=== PATIENT | female | born 2000 | race Caucasian/White ===

== ENCOUNTER 2018-01-17 12:02 | Emergency (ER) | END 2018-01-17 13:25 | disposition home or self-care (01) ==

== ENCOUNTER 2018-03-25 20:08 | Emergency (ER) | END 2018-03-25 23:39 | disposition home or self-care (01) ==

== ENCOUNTER 2018-10-08 22:06 | Inpatient (IN) | payer OTHER ==
[~2018-10-08] VITALS: Ht 149.9 cm; Wt 76.6 kg
[~2018-10-08 22:06] MED LIST: ACET500C5 PO; HYDR-4011 PO; NO MEDS; ONDA4TAB14 PO
[2018-10-08] MEDS ORDERED: PNV11TAB PO (23:13)
[2018-10-08 23:14] VITALS: BP 122/82; PULSE 68; RESP 18; Ht 149.9 cm; Wt 76.6 kg
[2018-10-08] MEDS ORDERED: LACTATED RINGER'S 1,000 ML IV PRN (23:45)
[2018-10-09] MEDS ORDERED: AMPICILLIN 2 GM/NS (PMX) 100 ML IV PRN
[2018-10-09] MEDS ORDERED: BUTORPHANOL 2 MG INJ IV PRN
[2018-10-09] MEDS ORDERED: OXYTOCIN 30 UNITS/LR 500 ML IV SCH ×2
[2018-10-09] MEDS ORDERED: OXYTOCIN 30 UNITS/LR 500 ML IV PRN
[2018-10-09] MEDS ORDERED: LIDOCAINE 1% (MPF) 30 ML INJ INJ PRN
[2018-10-09] MEDS ORDERED: CARBOPROST 250 MCG INJ IM PRN
[2018-10-09] MEDS ORDERED: MISOPROSTOL 200 MCG TAB PR PRN
[2018-10-09] MEDS ORDERED: METHYLERGONOVINE 0.2 MG INJ IM PRN
[2018-10-09] MEDS: LACTATED RINGER'S 1,000 ML IV SCH ×3 (01:06→16:54)
[2018-10-09] MEDS: MISOPROSTOL 50 MCG CAPSULE PO PRN ×5 (02:56→22:19)
--- NOTE | 2018-10-09 03:21 | TRIAGE ---
OB Triage Datetime Report Generated by CPN: 10/09/2018 03:21 Datetime: 10/09/2018 03:02 Temperature Route: Oral Monitor Mode: External Monitor Mode: External US Datetime: 10/09/2018 03:00 Stage of : Labor Labor Evaluation Frequency: irregular Monitor Mode: External Pattern: Normal: <= 5 Contractions in 10 Minutes Resting Tone Ute: Relaxed Heart Rate FHR Baseline Rate: 140 Monitor Mode: External US Variability: Moderate 6-25 bpm Accelerations: 15X15 Decelerations: None Category: Category I Datetime: 10/09/2018 02:00 Stage of : Labor Labor Evaluation Frequency: irregular Monitor Mode: External Pattern: Normal: <= 5 Contractions in 10 Minutes Resting Tone Ute: Relaxed Heart Rate FHR Baseline Rate: 145 Monitor Mode: External US Variability: Moderate 6-25 bpm Accelerations: 15X15 Decelerations: None Category: Category I Datetime: 10/09/2018 01:38 Monitor Mode: External Monitor Mode: External US Datetime: 10/09/2018 01:35 Comments: loss of contact/patient on sitting position. Datetime: 10/09/2018 01:14 Monitor Mode: External Monitor Mode: External US Datetime: 10/09/2018 01:00 Stage of : Labor Labor Evaluation Frequency: irritability Monitor Mode: External Pattern: Normal: <= 5 Contractions in 10 Minutes Resting Tone Ute: Relaxed Heart Rate FHR Baseline Rate: 140 Monitor Mode: External US Variability: Moderate 6-25 bpm Accelerations: 15X15 Decelerations: None Category: Category I Datetime: 10/09/2018 00:50 Assessment Type: Admission Assessment Vaginal Bleeding: None Maternal Assessment Level of Consciousness: Keenly Alert, Responsive DTR's/Clonus: DTRs 2+; No Clonus Headache: Denies Blurred Vision: No Respiratory Effort: Unlabored; Regular Rhythm; Equal Expansion Breath Sounds, Left: Clear and Equal Breath Sounds, Right: Clear and Equal Nausea/Vomiting: Denies RUQ Epigastric Pain: Denies Lower Extremities Edema: None Degree: None Upper Extremities Edema: None Degree: None Facial Edema: None Temperature Route: Oral Fall Risk Assessment History of Falling: (0) No Secondary Diagnosis: (0) No Ambulatory Aid: (0) Bedrest/Nurse Assist IV Therapy: (20) Yes Gait: (0) Normal/Bedrest/Immobile Mental Status: (0) Oriented to Own Ability Fall Score: 20 Fall Risk Score Definition: No Risk: No action required Pain Assessment Pain Scale: 0 Pain Presence: None/Denies Pain Type: N/A Datetime: 10/09/2018 00:00 Time of Arrival: 10/09/2018 00:00 EGA: 38.1 Arrived By: Ambulatory Arrived From: Triage Datetime: 10/08/2018 22:58 Vaginal Exam Dilatation (cms): 1.0 Effacement (%): 50 Station: -2 Exam By: Rose Norman RN Membrane Status: Intact Vaginal Bleeding: None Cervix, Consistency: Soft Cervix, Position: Posterior Presentation 'A': Cephalic Datetime: 10/08/2018 22:30 Time of Arrival: 10/08/2018 22:00 EGA: 38.0 Arrived By: Wheelchair Arrived From: Home Chief Complaint: Lower abdominal pressure every 10-15 minutes since 2099. Movement: Present Contractions: Irregular Time Contractions Began: 10/08/2018 21:00 Contractions: Every 10-15 minutes Rupture of Membranes: Denies Vaginal Bleeding: None Vaginal Discharge: Denies Recent Sexual Intercouse: Denies Abdominal Trauma: Not Applicable Patient Complaints: Nausea; Vomiting; Dizziness; Other Additional Patient Complaints: Dizziness and vomiting this week. Time Provider Notified: 10/08/2018 23:05 Provider Notified: Dr. Petersen Initial Plan: CEFM, VE Datetime: 10/08/2018 22:24 Stage of : OB Triage Assessment Type: Triage Maternal Assessment Level of Consciousness: Keenly Alert, Responsive DTR's/Clonus: DTRs 2+; No Clonus Headache: Denies Blurred Vision: No Respiratory Effort: Unlabored; Regular Rhythm; Equal Expansion Breath Sounds, Left: Clear and Equal Breath Sounds, Right: Clear and Equal Nausea/Vomiting: Denies RUQ Epigastric Pain: Denies Facial Edema: None Temperature Route: Oral Fall Risk Assessment History of Falling: (0) No Secondary Diagnosis: (0) No Ambulatory Aid: (0) Bedrest/Nurse Assist IV Therapy: (0) No Gait: (0) Normal/Bedrest/Immobile Mental Status: (0) Oriented to Own Ability Fall Score: 0 Fall Risk Score Definition: No Risk: No action required Pain Assessment Pain Scale: 6 Pain Presence: Intermittent Pain Type: Pressure Pain Location: Abdomen (Annotations: Lower)
--- NOTE | 2018-10-09 05:06 | HP ---
Date/Time of Note Date/Time of Note DATE: 10/09/18 TIME: 05:01 OB - History Hx of Present Free Text/Dictation October 09, 2018 Care: Good Care Other Concerns: 18-year-old G1, P0 with IUP at 38 weeks and care with [facility] presented with complaint of dizziness and occasional headache with blurred vision. She was sent for rule out PIH. She denies any leaking of fluid, vaginal bleeding or decreased movement. She had elevated blood pressure in the range of 130s to 140s over 90s 100's. She was admitted for induction of labor due to PIH. She also had elevated LFT. Cervical exam /. records available Past Family/Social History * Past Medical, Surgical, Family and Obstetric Histories reviewed from chart. OB Admission Exam Vital Signs Vital Signs Vital Signs Date Temp Pulse Resp B/P (MAP) Pulse Ox O2 O2 Flow FiO2 Time Delivery Rate 10/08/18 98.2 68 18 122/82 Room Air 23:14 (95) Physical Exam HEENT: WNL Lungs: Clear Abdomen: WNL Cervical Dilatation: 1cm Effacement: 50% Station: -2 Membranes: Intact Heart Rate: 120's Accelerations: Accelerations Present Decelerations: No Decelerations Varibility: Moderate Contractions on Admission: >10 Minutes Apart Intensity: Mild Last 72 hours Lab Results CBC & BMP 10/09/18 00:45 Liver Function Test 10/09/18 00:45 Alanine Aminotransferase (ALT/SGPT) 102 H Albumin 3.4 Alkaline Phosphatase 553 H Aspartate Amino Transf (AST/SGOT) 42 Direct Bilirubin 0.00 Total Protein 7.1 OB Assessment/Plan Other Assessment: IUP at 38 weeks -induced hypertension with occasional severe features Elevated LFT, cannot rule out severe preeclampsia Patient will be admitted for labor induction Currently asymptomatic, currently denies any headache, blurred vision epigastric pain or right upper quadrant pain Consider magnesium sulfate for seizure prophylaxis if symptomatic or have elevated blood pressure in the severe range Anticipate . Plan of care discussed with the patient and ADITI MALLORY MD Oct 09, 2018 05:06
[2018-10-10] MEDS: LACTATED RINGER'S 1,000 ML IV SCH ×3 (01:30→17:46)
[2018-10-10] MEDS: MISOPROSTOL 50 MCG CAPSULE PO PRN (02:25)
[2018-10-10] MEDS ORDERED: OXYTOCIN 30 UNITS/LR 500 ML IV SCH (05:00)
--- NOTE | 2018-10-10 18:01 | QN ---
Documentation Comment slow progress NST reassuring CAS MCGREGOR MD Oct 10, 2018 18:01
[2018-10-10] MEDS ORDERED: CEFAZOLIN 1 GM/50 ML (PMX) 50 ML IVPB SCH (20:30)
--- NOTE | 2018-10-10 21:29 | PREAC ---
Date/Time of Note Date/Time of Note DATE: 10/10/18 TIME: 21:26 Anesthesia Eval and Record Evaluation Time Pre-Procedure Interview DATE: 10/10/18 TIME: 21:26 Age 18 Sex female NPO: 8 hrs Preoperative diagnosis Preeclampsia Planned procedure Past Medical History Past Medical History: Includes : : (1), Para: (0), Gestational age: (38), PIH (Preeclamsia) Surgery & Anesthesia Issues No known issue Meds Anticoagulation: No Beta Rosita within 24 hr: No Reason Beta Rosita not given: Pt. not on B-Rosita Reported Medications [id number] ( ) 1 Each Tablet, 1 TAB PO DAILY, TAB 10/08/18 Discontinued Reported Medications [No Meds] No Conflict Check 01/23/13 Discontinued Scripts Acetaminophen* (Tylophen*) 500 Mg Capsule, 1 CAP PO Q6H PRN for PAIN AND OR ELEVATED TEMP, #20 CAP Prov:BRAD VILCHIS PA-C 05/21/18 Ondansetron (Ondansetron Odt) 4 Mg Tab.rapdis, 4 MG PO Q6H PRN for NAUSEA AND/OR VOMITING, #10 TAB Prov:MERISSA HUGHES PA-C 03/25/18 Ondansetron (Ondansetron Odt) 4 Mg Tab.rapdis, 4 MG PO Q6H PRN for NAUSEA AND/OR VOMITING, #10 TAB Prov:MARYANN SHABAZZ PA-C 01/17/18 Hydrocodone/Acetaminophen ([place] 5-325 Tablet) 1 Each Tablet, 1 TAB PO Q6H PRN for PAIN, #15 TAB Prov:MARYANN SHABAZZ PA-C 01/17/18 Current Medications Lactated Ringer's 1,000 ml @ 125 mls/hr Q8H IV Last administered on 10/10/18at 17:46; Admin Dose 125 MLS/HR; Start 10/08/18 at 23:45 Ampicillin 100 ml @ 100 mls/hr ONCE PRN IV NOTE; Start 10/09/18 at 00:00 Butorphanol Tartrate (Stadol) 2 mg Q2H PRN IV .PAIN SCALE 6-10; Start 10/09/18 at 00:00 Lidocaine (Xylocaine 1% (Mpf)) 30 ml ONCE PRN INJ .EPISIOTOMY; Start 10/09/18 at 00:00 Oxytocin/Lactated Ringer's 500 ml @ 500 mls/hr ONCE POST IV ; Start 10/09/18 at 00:00 Oxytocin/Lactated Ringer's 500 ml @ 125 mls/hr POST IV ; Start 10/09/18 at 00:00 Lactated Ringer's 1,000 ml @ 2,000 mls/hr Q30M PRN IV .ANESTHESIA; Start 10/08/18 at 23:45 Oxytocin/Lactated Ringer's 500 ml @ 0 mls/hr ONCE PRN IV .VAGINAL BLEEDING; Start 10/09/18 at 00:00 Methylergonovine Maleate (Methergine) 0.2 mg ONCE PRN IM .VAGINAL BLEEDING; Start 10/09/18 at 00:00 Carboprost Tromethamine (Hemabate) 250 mcg ONCE PRN IM .VAGINAL BLEEDING; Start 10/09/18 at 00:00 Misoprostol (Cytotec) 1,000 mcg ONCE PRN FL .VAGINAL BLEEDING; Start 10/09/18 at 00:00 Misoprostol (Cytotec 50 Mcg Capsule) 50 mcg Q4 PRN PO CERVICAL RIPENING Last administered on 10/10/18at 02:25; Admin Dose 50 MCG; Start 10/09/18 at 00:00 Oxytocin/Lactated Ringer's 500 ml @ 0 mls/hr Q0M IV Last administered on 10/10/18at 06:08; Admin Dose 1 MLS/HR; Start 10/10/18 at 05:00 Cefazolin Sodium/ Dextrose 50 ml @ 100 mls/hr ONCE IVPB ; Start 10/11/18 at 05:30 Ondansetron HCl (Zofran Inj) 4 mg ONCE ONCE IV ; Start 10/11/18 at 05:00; Stop 10/11/18 at 05:01 Citric Acid/ Sodium Citrate (Bicitra) 30 ml ONCE ONCE PO ; Start 10/11/18 at 05:00; Stop 10/11/18 at 05:01 Meds reviewed: Yes Allergies Coded Allergies: No Known Allergy (Unverified , 10/08/18) Allergies Reviewed: Yes Labs/Studies Labs Reviewed: Reviewed by anesthesiologist Result Diagram: 6/20/19 0921 6/20/19 0921 test: Positive Studies: ECG (n/a), CXR (n/a) Pre-procedure Exam Last vitals Vital Signs Date Temp Pulse Resp B/P (MAP) Pulse Ox O2 O2 Flow FiO2 Time Delivery Rate 10/08/18 98.2 68 18 122/82 Room Air 23:14 (95) Airway: Adequate mouth opening, Adequate thyromental dist Mallampati: Mallampati II Teeth: Normal Lung: Normal Heart: Normal ASA Physical Status ASA physical status: 2 Emergency: None Planned Anesthetic Neuraxial: Spinal Planned Pain Management Sub-arachniod narcotics, Parenteral pain med Pre-operative Attestations Prior to commencing anesthesia and surgery, the patient was re-evaluated, there was verification of: *The patient's identity *The results of appropriate recent lab work and preoperative vital signs *The above evaluation not changing prior to induction *Anesthetic plan, risk benefits, alternative and complications discussed with patient/family; questions answered; patient/family understands, accepts and wishes to proceed. SINDHU AYON MD Oct 10, 2018 21:29
[2018-10-11] VITALS (9 sets, daily range): BP systolic 114–139; BP diastolic 72–92; PULSE 55–82; RESP 16–18
[2018-10-11] MEDS: LACTATED RINGER'S 1,000 ML IV SCH (02:29)
[2018-10-11] MEDS ORDERED: ONDANSETRON 4 MG INJ IV ONE (05:00)
[2018-10-11] MEDS ORDERED: CITRIC ACID/NA CITRATE 30 ML CUP PO ONE (05:00)
[2018-10-11] MEDS ORDERED: CEFAZOLIN 2 GM/50 ML (PMX) 50 ML IVPB SCH (05:30)
[2018-10-11] MEDS ORDERED: PHENYLephrine (100 MCG/ML) 10ML SYG ONE (06:14)
[2018-10-11] MEDS ORDERED: morphine SULFATE/PF (10 MG/10 ML) INJ ONE (06:14)
[2018-10-11] MEDS ORDERED: OXYTOCIN 10 UNIT INJ ONE (06:15)
[2018-10-11] MEDS ORDERED: HYDROmorphONE 1 MG/5 ML IV SYRINGE IV PRN ×2 (07:00)
[2018-10-11] MEDS ORDERED: HYDROmorphONE 0.5 MG/0.5 ML SYG IV PRN ×2 (07:00)
[2018-10-11] MEDS ORDERED: ONDANSETRON 4 MG INJ IV PRN ×3 (07:00→07:30)
[2018-10-11] MEDS ORDERED: LABETALOL HCL 20MG INJ IV PRN (07:00)
[2018-10-11] MEDS ORDERED: FENTAnyl 50 MCG/ML VIAL IV PRN ×2 (07:00)
[2018-10-11] MEDS ORDERED: KETOROLAC 30 MG INJ IV PRN (07:00)
[2018-10-11] MEDS ORDERED: OXYCODONE/ACETAMINOPHEN (5/325) TAB PO PRN ×2 (07:00→07:30)
[2018-10-11] MEDS ORDERED: DIPHENHYDRAMINE 50 MG INJ IV PRN ×2 (07:00)
[2018-10-11] MEDS ORDERED: ACETAMINOPHEN 500 MG TAB PO PRN (07:00)
[2018-10-11] MEDS ORDERED: HYDROCODONE/APAP (5/325) TAB PO PRN (07:00)
[2018-10-11] MEDS ORDERED: EPHEDrine 25 MG/5 ML SYG IV PRN (07:00)
[2018-10-11] MEDS ORDERED: METOCLOPRAMIDE 10 MG INJ IV PRN (07:00)
[2018-10-11] MEDS ORDERED: NALBUPHINE HCL (10 MG/1 ML) INJ IV PRN (07:00)
[2018-10-11] MEDS ORDERED: NALOXONE (0.4 MG/ML) INJ IV PRN (07:00)
[2018-10-11] MEDS ORDERED: morphine 2 MG INJ IV PRN ×2 (07:00)
[2018-10-11] MEDS ORDERED: MEPERIDINE 25 MG INJ IV PRN (07:00)
[2018-10-11] MEDS ORDERED: METOCLOPRAMIDE 10 MG INJ ONE (07:05)
[2018-10-11] MEDS ORDERED: KETOROLAC 30 MG INJ ONE (07:05)
[2018-10-11] MEDS ORDERED: DEXAMETHASONE 4 MG/ML 1 ML INJ ONE (07:05)
[2018-10-11] MEDS ORDERED: LACTATED RINGER'S 1,000 ML IV SCH (07:23)
[2018-10-11] MEDS ORDERED: OXYTOCIN 30 UNITS/LR 500 ML IV SCH (07:23)
[2018-10-11] MEDS ORDERED: METHYLERGONOVINE 0.2 MG INJ IM PRN (07:30)
[2018-10-11] MEDS ORDERED: CEFAZOLIN 1 GM/50 ML (PMX) 50 ML IVPB SCH (07:30)
[2018-10-11] MEDS ORDERED: OXYTOCIN 30 UNITS/LR 500 ML IV PRN (07:30)
[2018-10-11] MEDS ORDERED: SENNA/DOCUSATE NA (8.6MG/50MG) TAB PO PRN (07:30)
[2018-10-11] MEDS ORDERED: ACETAMINOPHEN 325 MG TAB PO PRN (07:30)
[2018-10-11] MEDS ORDERED: CARBOPROST 250 MCG INJ IM PRN (07:30)
[2018-10-11] MEDS ORDERED: MISOPROSTOL 200 MCG TAB PR PRN (07:30)
[2018-10-11] MEDS ORDERED: BISACODYL 10 MG SUPP PR PRN (07:30)
[2018-10-11] MEDS ORDERED: MAGNESIUM HYDROXIDE 30ML CUP PO PRN (07:30)
--- NOTE | 2018-10-11 07:41 | OPR ---
Operative Report Planned Procedure Procedure date Oct 11, 2018 Procedure(s) Primary low transverse section Performed by see signature line Soap Tender: TERRANCE FOSTER MD Pre-procedure diagnosis 1. Failed induction 2. Preeclampsia [id number] Anesthesia Type: [id number] spinal Post-Procedure Post-procedure diagnosis 1. Failed induction 2. Preeclampsia Findings Live Baby [girl], Apgars [8] and [9], weight [6 pounds 9 ounces/ 2975 grams], [v ertex] presentation EBL 500cc IVF 1200cc U/O 75 cc Estimated Blood Loss: 400 - 500 mls Specimen(s) placenta Grafts/Implant(s) none Complication(s) none Pt Condition post procedure: stable Disposition: PACU Procedure Description Patient was taken to the operating room after adequate amount of anesthesia was given patient was prepped and draped in normal sterile fashion Low transverse Pfannenstiel skin incision was made. Incision was carried through to the underlying layer of fascia using Bovie Fascia was incised in the midline and incision was extended bilaterally using Bovie Both anterior and posterior edge of the fascia were from underlying layer of rectus muscles Rectus muscles were in the midline and peritoneum was identified and entered sharply without any difficulty Peritoneum was extended bilaterally manually. An Ciro retractor was placed A bladder flap was created. Then a low transverse uterine incision was made on the uterus Fetus was delivered from vertex presentation and after 30 seconds delayed cord clamping the fetus was handed immediately to the waiting ICU team Placenta was delivered manually intact. Uterus was cleared off of all clots and debris Uterine incision was closed with 1 Vicryl suture in both running locked and a second layer imbricating fashion Multiple irrigations were performed and excellent hemostasis was noted. Both adnexa appeared normal Ciro retractor was removed Peritoneal closure proceeded with 2-0 Vicryl in a running fashion. Rectus muscles were reapproximated with 2-0 Vicryl Excellent hemostasis was confirmed Fascia was closed with 0-Vicryl suture in 2 separate segments in a running fashion Subcutaneous layer was closed with 0- plain suture in a continuous fashion Skin was closed with end-sorb rashmi and Dermabond glue All sponge, lap, needle counts were reported to be correct Patient tolerated the procedure well and taken back to recovery room in a stable condition JOSH CHAVEZ MD Oct 11, 2018 07:41
[2018-10-11] MEDS: LANOLIN HPA 1 PKT TOP PRN (12:58)
[2018-10-11] MEDS: CEFAZOLIN 1 GM/50 ML (PMX) 50 ML IVPB SCH ×2 (15:50→22:41)
[2018-10-12] VITALS: BP 141/98; PULSE 64; RESP 18
[2018-10-12 04:10] VITALS: BP 134/85; PULSE 71; RESP 18
[2018-10-12 08:00] VITALS: BP 124/75; PULSE 82; RESP 18
[2018-10-12] MEDS: CEFAZOLIN 1 GM/50 ML (PMX) 50 ML IVPB SCH (09:03)
[2018-10-12] MEDS: IBUPROFEN 600 MG TAB PO PRN ×2 (13:19→21:01)
--- NOTE | 2018-10-12 13:22 | QN ---
Documentation Comment s/p c/s Subjective: no complaint Objective: Afebrile, VSS NAD A&O Abdomen: soft, appropriate tender Incision: no sign of bleeding/infection mild lochia Extremity: 1+ edema bilaterally Assessment: S/p C/S. POD # 1 Recovering Well Plan: current care CAS MCGREGOR MD Oct 12, 2018 13:22
[2018-10-12 15:35] VITALS: BP 123/90; PULSE 91; RESP 18
[2018-10-12 20:00] VITALS: BP 138/82; PULSE 80; RESP 18
[2018-10-12] MEDS: OXYCODONE/ACETAMINOPHEN (5/325) TAB PO PRN (21:01)
[2018-10-13 04:00] VITALS: BP 105/83; PULSE 85; RESP 18
--- NOTE | 2018-10-13 07:44 | DS ---
Date/Time of Note Date/Time of Note DATE: 10/13/18 TIME: 07:42 Obstetrical Discharge Record Final Diagnosis Final Diagnosis: Term delivered Section Section: Primary Primary Indication patient was admitted for IOL for elevated BPs. she developed failure to progress. s/p primary c/s. postoperatively she remained with normal BPs. Denies headaches, visual changes or RUQ pain. had flatus, good pain control on oral meds and tolerated regular diet. Complications Preg induced Hypertension Augmentation: Yes Induction: Yes Rupture of Membranes: No Condition on Discharge Physical Assessment Voiding: Yes Bowel Movement: Yes Breast: Soft, non-tender, Filling Fundus: Firm Abdomen and Incision: soft, appropriate tenderness Episiotomy: NA Calf Tenderness: No Patient Condition: Good CAS MCGREGOR MD Oct 13, 2018 07:44
[2018-10-13 08:00] VITALS: BP 131/84; PULSE 84; RESP 18
[2018-10-13] MEDS: LANOLIN HPA 1 PKT TOP PRN ×2 (09:16→17:24)
[2018-10-13] MEDS: OXYCODONE/ACETAMINOPHEN (5/325) TAB PO PRN (09:16)
[2018-10-13] MEDS: IBUPROFEN 600 MG TAB PO PRN ×2 (09:16→17:24)
[2018-10-13 16:00] VITALS: BP 115/76; PULSE 81; RESP 18
[2018-10-13 20:00] VITALS: BP 138/85; PULSE 88; RESP 18
[2018-10-14] MEDS: IBUPROFEN 600 MG TAB PO PRN (03:58)
[2018-10-14 04:00] VITALS: BP 118/76; PULSE 79; RESP 17
[2018-10-14 08:00] VITALS: BP 112/69; PULSE 81; RESP 18
--- NOTE | 2018-10-15 14:29 | DELSUM ---
Delivery Summary A-C Datetime Report Generated by CPN: 10/15/2018 14:29 DELIVERY PERSONNEL Shooter'S Helper: Woody Servine MATERNAL INFORMATION Delivery Anesthesia: Spinal Medications in Delivery: SEE ANESTHESIA RECORD Delivery QBL (ml): 500 Placenta Cultured: No Maternal Complications: Other Other Maternal Complications: HIGH BLOOD PRESSURE LABOR SUMMARY EDC: 10/22/2018 00:00 No. Babies in Womb: 1 Attempted: No Labor Anesthesia: None LABOR INFORMATION Reason for Induction: Gest. HTN/PreEclam/Eclamp Onset of Labor: 10/09/2018 03:00 Cervical Ripening Agents: Cytotec @ (Annotations: 50mcg (Dose #6)) Group B Beta Strep: Not Done Antibiotics # of Doses: 2 Antibiotics Time of Last Dose: 10/11/2018 06:15 Steroids Given: None Reason Steroids Not Administered: Not Applicable MEMBRANES Membranes Rupture Method: Artificial Rupture of Membranes: 10/11/2018 06:45 Length of Rupture (hr): 0.00 Amniotic Fluid Color: Clear Amniotic Fluid Amount: Moderate Amniotic Fluid Odor: Normal STAGES OF LABOR Stage 3 hr: 0 Stage 3 min: 1 Total Time in Labor hr: 51 Total Time in Labor min: 46 CSECTION DELIVERY Primary Indication: Failed Induction Secondary Indication: Other Other Secondary Indication: Preeclampsia CSection Urgency: Elective CSection Incidence: Primary Labor: Labor Elective: Elective CSection Incision: Lower Uterine Transverse BABY A INFORMATION Infant Delivery Date/Time: 10/11/2018 06:45 Method of Delivery: Born in Route : No : N/A Forceps: N/A Vacuum Extraction: N/A Shoulder Dystocia : N/A SHOULDER DYSTOCIA BABY A Delivery Date/Time: 10/11/2018 06:45 PRESENTATION/POSITION BABY A Presentation: Cephalic Cephalic Presentation: Vertex Vertex Position: Left Occipital Anterior Breech Presentation: N/A PLACENTA INFORMATION BABY A Placenta Delivery Time : 10/11/2018 06:46 Placenta Method of Delivery: Manual Removal Placenta Status: Delivered SCORES BABY A Heart Rate 1 min: >100 bpm Resp Effort 1 min: Good Cry Reflex Irritability 1 min: Cough/Sneeze/Pulls Away Muscle Tone 1 min: Active Motion Color 1 min: Blue/Pale Resuscitation Effort 1 min: Tactile Stimulation; Oxygen SCORE 1 MIN: 8 Heart Rate 5 min: >100 bpm Resp Effort 5 min: Good Cry Reflex Irritability 5 min: Cough/Sneeze/Pulls Away Muscle Tone 5 min: Active Motion Color 5 min: Body [place], Extremit Blue Resuscitation Effort 5 min: Tactile Stimulation SCORE 5 MIN: 9 INFANT INFORMATION BABY A Gestational Age at Delivery: 38.3 Gestational Status: Early Term- 37- 38.6 Weeks Outcome : Liveborn, with signs of life Infant Condition : Stable Infant Sex: Female IDENTIFICATION/MEDS BABY A ID Band Number: [id number] ID Band Location: Right Leg; Left Arm Sensor Applied: Yes Sensor Number: [id number] Sensor Location : Cord Clamp Vitamin K Given : Not Given Erythromycin Given: Not Given WEIGHT/LENGTH BABY A Infant Birthweight (gm): 2975 Weight (lb): 6 Weight (oz): 9 Length (in): 19.00 Length (cm): 48.26 CORD INFORMATION BABY A No. Cord Vessels: 3 Nuchal Cord : Around Neck x1, Loose Nuchal Cord- Other: 0 True Knot: 0 Cord Blood Taken: Yes Banking/Donate Info: No Suction: Mouth; Nose ASSESSMENT BABY A Complications: Multiple Variable Decels Physical Findings at Delivery: Within Normal Limits Respirations: Appears Normal Team Leader/ALS Called : No Infant Care By: Danielle RT, Lo Harkins RN Transferred To: Remains with Mother
== END 2018-10-14 13:45 | disposition home or self-care (01) | DRG 788 ==
LOC: OBT 22:06 → L-D 22:07 → OBT 23:35 → L-D 10-09 00:06 → PP1 10-11 10:38
PROVIDERS: ADMIT Specialist; ATTEND Specialist
PROC: 10D00Z1 Extraction of Products of Conception, Low, Open Approach (ICD-10-PCS; principal; 2018-10-11 06:15)
DX: O13.4 Gestational [pregnancy-induced] hypertension without significant proteinuria, complicating childbirth (principal); O61.0 Failed medical induction of labor; O14.14 Severe pre-eclampsia complicating childbirth; Z3A.38 38 weeks gestation of pregnancy; Z37.0 Single live birth
CPT/HCPCS: 76816; 80053; 81001; 84560; 85025; 85384; 85610; 85730; 86592; 86850; 86900; 86901; 87340; 99464; A4310; G0463; J0690; J1100; J1885; J2274; J2370; J2405; J2590; J2765; J7120